=== PATIENT | male | born 1960 | race Caucasian/White ===

== ENCOUNTER 2016-12-17 17:55 | Emergency (ER) | payer OTHER ==
--- NOTE | 2016-12-17 18:24 | PDOC ---
History of Present Illness - General History Source: Patient <Yasmin Vincent Quincy - Last Filed: 12/17/16 18:25> - General History Source: Patient Exam Limitations: No Limitations - History of Present Illness Initial Comments: 12/17/16 18:26 The patient is a 55 year old male, with a significant past medical history of asthma, HTN, and kidney stones, who presents to the emergency department with left eye pain since yesterday The patient reports having burning sensations coming from his left eye. He reports this morning he had to manually open his eye because it was stuck together. He denies any recent fevers, chills, headache or dizziness. He denies any recent nausea, vomit, diarrhea or constipation. Allergies:NKA Past surgical history: Right TKR Social History: Nonsmoker. Denies EtOH use and drug use. <Maynor Vance - Last Filed: 12/17/16 18:27> - General Chief Complaint: Eye Problem Stated Complaint: LEFT EYE BURNING Time Seen by Provider: 12/17/16 17:57 Past History - Past Medical History Anemia: No Asthma: Yes Cancer: No Cardiac Disorders: No CVA: No COPD: No CHF: No Dementia: No Diabetes: No GI Disorders: No Disorders: Yes (KIDNEY STONES 05/23) HTN: Yes Hypercholesterolemia: No Kidney Stones: Yes Liver Disease: No Seizures: No Thyroid Disease: No - Surgical History Abdominal Surgery: No Appendectomy: No Cardiac Surgery: No Cholecystectomy: No Lung Surgery: No Neurologic Surgery: No Orthopedic Surgery: Yes (rt knee sx 1999) - Psycho/Social/Smoking Cessation Hx Anxiety: No Suicidal Ideation: No Smoking Status: No Smoking History: Never smoked Have you smoked in the past 12 months: No Number of Cigarettes Smoked Daily: 0 Hx Alcohol Use: No Drug/Substance Use Hx: No Substance Use Type: None Hx Substance Use Treatment: No <Yasmin Vincent - Last Filed: 12/17/16 18:25> <Maynor Vance - Last Filed: 12/17/16 18:27> - Past Medical History Allergies/Adverse Reactions: Allergies Allergy/AdvReac Type Severity Reaction Status Date / Time No Known Allergies Allergy Verified 08/14/15 00:00 Home Medications: Ambulatory Orders Albuterol Sulfate Inhaler - [Ventolin HFA Inhaler -] 2 inh PO Q6H PRN #1 inh 12/24 Albuterol Sulfate Inhaler - [Ventolin Hfa Inhaler -] 2 inh PO PRN 08/14/15 Azithromycin [Zithromax 250mg Tablets -] 250 mg PO UTDICT #6 tab 08/14/15 Tobramycin Sulf/Dexamethasone [Tobradex Ophthalmic Suspension -] 1 drop OP BID # 1 5ml 12/17/16 Review of Systems - Review of Systems Constitutional: No: Symptoms Reported HEENTM: Yes: Eye Pain Respiratory: No: Symptoms reported Cardiac (ROS): No: Symptoms Reported ABD/GI: No: Symptoms Reported : No: Symptoms Reported Musculoskeletal: No: Symptoms Reported Integumentary: No: Symptoms Reported Neurological: No: Symptoms reported Endocrine: No: Symptoms Reported <Maynor Vance - Last Filed: 12/17/16 18:27> *Physical Exam - Physical Exam General Appearance: Yes: Appropriately Dressed, Obese HEENT: positive: EOMI, ZAINAB, Normal ENT Inspection, Normal Voice, TMs Normal, Other (Left eye hyperemic conjunctiva at the perherpa of the eye globe.) Neck: positive: Supple Respiratory/Chest: positive: Lungs Clear, Normal Breath Sounds Cardiovascular: positive: Regular Rhythm, Regular Rate Gastrointestinal/Abdominal: positive: Normal Bowel Sounds, Flat, Soft Musculoskeletal: positive: Normal Inspection Extremity: positive: Normal Capillary Refill, Normal Inspection, Normal Range of Motion Integumentary: positive: Normal Color, Dry, Warm Neurologic: positive: leather splitter II-XII NML intact, Fully Oriented, Alert, Normal Mood/ Affect, Normal Response, Motor Strength 5/5 <Maynor Vance - Last Filed: 12/17/16 18:27> *DC/Admit/Observation/Transfer - Discharge Dispostion Admit: No <Yasmin Vincent - Last Filed: 12/17/16 18:25> - Attestations Scribe Attestion: 12/17/16 18:27 Documentation prepared by Maynor Vance, acting as medical technologist hematology for Yasmin Vincent MD. <Maynor Vance - Last Filed: 12/17/16 18:27> Diagnosis at time of Disposition: Conjunctivitis due to adenovirus, left eye - Prescriptions Prescriptions: Tobramycin Sulf/Dexamethasone [Tobradex Ophthalmic Suspension -] 1 drop OP BID # 1 5ml - Referrals Referrals: Kanwal Ramirez MD [Staff Physician] - - Patient Instructions Printed Discharge Instructions: How to Instill Eye Drops, DI for Red Eye Additional Instructions: Avoid dust, excessive light exposure. If no improvement by Thursday follow up with MD - Post Discharge Activity Work/School Note: Back to Work
[2016-12-17] MEDS ORDERED: TOBRAMYCIN 0.3% OPHTH SOLN 5 ML BOTTLE ONE (18:32)
[2016-12-17 18:50] VITALS: BP 131/79; PULSE 70; TEMP 98.2; BMI 39.9
[2016-12-18] MEDS ORDERED: TOBRA 0.3%/DEXAMETH 0.1% OPHTHALMIC SUSP 2.5 ML BTL OS SCH
== END 2016-12-17 18:51 | disposition home or self-care (01) ==
LOC: FER 17:55
DX: B30.1 Conjunctivitis due to adenovirus (principal); J45.909 Unspecified asthma, uncomplicated; Z87.442 Personal history of urinary calculi; I10 Essential (primary) hypertension
CPT/HCPCS: 99282-25

== ENCOUNTER 2017-01-21 16:13 | Emergency (ER) | payer OTHER ==
--- NOTE | 2017-01-21 16:42 | PDOC ---
History of Present Illness - History of Present Illness Initial Comments: 01/21/17 16:44 The patient is a 56 year old male, with a significant past medical history of hypertension and asthma, who presents to the emergency department with fever, chills, cough, and generalized muscle aches since last night. The patient states he was referred to the ED when the nurse at his job ([employer] ) recorded his oral temperature at 101.9F today. He states he feels very weak and sore. The patient also reports some mild nasal congestion/ He reports his cough is persistent and productive of white sputum. He reports taking porfirio with minimal relief of symptoms. 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 He denies recent travels. He denies neck pain. He reports receiving the flu vaccine this season. He denies chest pain, shortness of breath, headache and dizziness. He denies nausea, vomit, diarrhea and constipation. He denies dysuria, frequency, urgency and hematuria. Allergies: NKDA Past surgical history: none Social history: Denies toxic habits <Marlene Owens - Last Filed: 01/21/17 19:08> <Ziggy Wu - Last Filed: 01/22/17 07:58> - General Chief Complaint: Cold Symptoms Stated Complaint: NOT FEELING WELL FEVER 101.9 Time Seen by Provider: 01/21/17 16:23 Past History <Marlene Owens - Last Filed: 01/21/17 19:08> - Past Medical History Anemia: No Asthma: Yes Cancer: No Cardiac Disorders: No CVA: No COPD: No CHF: No Dementia: No Diabetes: No GI Disorders: No Disorders: Yes (KIDNEY STONES 05/23) HTN: Yes Hypercholesterolemia: No Kidney Stones: Yes Liver Disease: No Seizures: No Thyroid Disease: No - Surgical History Abdominal Surgery: No Appendectomy: No Cardiac Surgery: No Cholecystectomy: No Lung Surgery: No Neurologic Surgery: No Orthopedic Surgery: Yes (rt knee sx 1999) - Psycho/Social/Smoking Cessation Hx Anxiety: No Suicidal Ideation: No Smoking Status: No Smoking History: Never smoked Have you smoked in the past 12 months: No Number of Cigarettes Smoked Daily: 0 Hx Alcohol Use: No Drug/Substance Use Hx: No Substance Use Type: None Hx Substance Use Treatment: No <Ziggy Wu - Last Filed: 01/22/17 07:58> - Past Medical History Allergies/Adverse Reactions: Allergies Allergy/AdvReac Type Severity Reaction Status Date / Time No Known Allergies Allergy Verified 01/21/17 16:22 Home Medications: Ambulatory Orders Albuterol Sulfate Inhaler - [Ventolin Hfa Inhaler -] 2 inh PO PRN 08/14/15 Amox-Tr/K Cl [Augmentin - 875Mg Tablet] 1 tab PO BID #14 tablet 01/21/17 Review of Systems - Review of Systems Able to Perform ROS?: Yes Comments:: 01/21/17 16:45 CONSTITUTIONAL: (+) fever, chills, generalized weakness, Absent: diaphoresis, malaise, loss of appetite HEENT: Absent: rhinorrhea, nasal congestion, throat pain, throat swelling, difficulty swallowing, mouth swelling, ear pain, eye pain, visual Changes CARDIOVASCULAR: Absent: chest pain, syncope, palpitations, irregular heart rate, lightheadedness , peripheral edema RESPIRATORY: Absent: cough, shortness of breath, dyspnea with exertion, orthopnea, wheezing, stridor, hemoptysis GASTROINTESTINAL: Absent: abdominal pain, abdominal distension, nausea, vomiting, diarrhea, constipation, melena, hematochezia GENITOURINARY: Absent: dysuria, frequency, urgency, hesitancy, hematuria, flank pain, genital pain MUSCULOSKELETAL: (+) generalized myalgia,Absent: arthralgia, joint swelling SKIN: Absent: rash, itching, pallor HEMATOLOGIC/IMMUNOLOGIC: Absent: easy bleeding, easy bruising, lymphadenopathy, frequent infections ENDOCRINE: Absent: unexplained weight gain, unexplained weight loss, heat intolerance, cold intolerance NEUROLOGIC: Absent: headache, focal weakness or paresthesias, dizziness, unsteady gait, seizure, mental status changes, bladder or bowel incontinence PSYCHIATRIC: Absent: anxiety, depression, suicidal or homicidal ideation, hallucinations. <Marlene Owens - Last Filed: 01/21/17 19:08> *Physical Exam - Physical Exam Comments: 01/21/17 16:46 GENERAL: (+) Obese. Awake and alert. No acute distress. HEENT: Normocephalic, atraumatic. PERRLA, EOMI. No conjunctival pallor. Sclera are non- icteric. Moist mucous membranes. Oropharynx is clear. NECK: Supple. Full ROM. No JVD. Carotid pulses 2+ and symmetric, without bruits. No thyromegaly. No lymphadenopathy. CARDIOVASCULAR: (+) slightly tachycardic rate and regular rhythm. No murmurs, rubs, or gallops. Distal pulses are 2+ and symmetric. PULMONARY: (+) coughing on exam. No evidence of respiratory distress. Lungs clear to auscultation bilaterally. No wheezing, rales or rhonchi. ABDOMINAL: Soft. Non-tender. Non-distended. No rebound or guarding. No organomegaly. Normoactive bowel sounds. MUSCULOSKELETAL Normal range of motion at all joints. No bony deformities or tenderness. No CVA tenderness. EXTREMITIES: No cyanosis. No clubbing. No edema. No calf tenderness. SKIN: Warm and dry. Normal capillary refill. No rashes. No jaundice. NEUROLOGICAL: Alert, awake, appropriate. Cranial nerves 2-12 intact. Normoreflexic in the upper and lower extremities. Normal speech. Toes are down-going bilaterally. Gait is normal without ataxia. PSYCHIATRIC: Cooperative. Good eye contact. Appropriate mood and affect. <Marlene Owens - Last Filed: 01/21/17 19:08> ED Treatment Course - LABORATORY CBC & Chemistry Diagram: 01/21/17 17:29 01/21/17 17:29 - RADIOLOGY Radiograph Interpretation: 01/21/17 19:08 CXR was read by Dr. Morales Impression: No definite interval change in comparison to previous study 2012. <Marlene Owens - Last Filed: 01/21/17 19:08> - LABORATORY CBC & Chemistry Diagram: 01/21/17 17:29 01/21/17 17:29 <Ziggy Wu - Last Filed: 01/22/17 07:58> Medical Decision Making - Medical Decision Making 01/21/17 18:57 Repeat vital signs show oxygen saturation 97 on room air, blood pressure 123/63 , heart rate 96 and regular, respirations 20 and unlabored. Repeat examination reveals that the chest is clear, there is no tachypnea or dyspnea Patient remains stable. Chest x-ray as read by radiologist no congestion or infiltrate. Lactic acid normal. Signed out at [address] Pedraza pending further observation and disposition. <Ziggy Wu - Last Filed: 01/22/17 07:58> *DC/Admit/Observation/Transfer - Attestations Scribe Attestion: 01/21/17 16:48 Documentation prepared by Marlene Owens, acting as medical claims processor for Ziggy Isbell MD <Marlene Owens - Last Filed: 01/21/17 19:08> <Ziggy Wu - Last Filed: 01/22/17 07:58> Diagnosis at time of Disposition: Asthmatic bronchitis - Discharge Dispostion Disposition: HOME Condition at time of disposition: Stable - Prescriptions Prescriptions: Amox-Tr/K Cl [Augmentin - 875Mg Tablet] 1 tab PO BID #14 tablet - Patient Instructions Printed Discharge Instructions: DI for Acute Bronchitis Additional Instructions: augmentin 875/125 twice a day(take with food)for 1 week drink plenty of fluids; rest continue albuterol as needed return to ER if you have shortness of breath or persistent, high fever return to work on Thursday, January 26 as discussed followup with general doctor within 10 days as planned - Post Discharge Activity Work/School Note: Back to Work
[2017-01-21 16:54] VITALS: BMI 43.9
[2017-01-21 17:39] LABS: BASOPHIL 0.8 % (0-2.0); MCH 27.1 pg (25.7-33.7); MCHC 32.7 g/dl (32.0-35.9); MEAN PLT VOLUME 8.9 fl (7.5-11.1); NEUTROPHILS 68.4 % (42.8-82.8); PLATELET COUNT 246 K/MM3 (134-434); RDW 13.3 % (11.9-15.9); WHITE BLOOD COUNT 7.1 K/mm3 (4.0-10.0)
[2017-01-21 17:46] LABS: INR 1.06 (0.82-1.09); PROTHROMBIN TIME (PATIENT) 11.8 SEC (10.2-13.0)
[2017-01-21 17:52] LABS: ALBUMIN 4.4 g/dl (3.5-5.0); ALK PHOS 53 U/L (32-92); ANION GAP 11 (8-16); BILIRUBIN,TOTAL 0.7 mg/dl (0.2-1.0); CALCIUM 9.5 mg/dl (8.4-10.2); CO2 25 mmol/L (22-28); CPK(DFH) 164 IU/L (38-174); CREATININE 1.1 mg/dl (0.6-1.3); GLUCOSE,RANDOM 139 mg/dl (74-106); SGOT/AST 26 U/L (10-42); SGPT/ALT 35 U/L (10-40); TOT PROT 7.7 g/dl (6.4-8.3)
[2017-01-21 17:59] LABS: PH,URINE 5.5 (4.5-8); URINE APPEARANCE Clear; URINE BILIRUBIN Negative (NEGATIVE); URINE BLOOD Trace-lysed (NEGATIVE); URINE GLUCOSE (UA) Negative (NEGATIVE); URINE KETONE Negative (NEGATIVE); URINE LEUK ESTERASE Negative (NEGATIVE); URINE NITRITE Negative (NEGATIVE); URINE UROBILINOGEN 0.2 E.U/dl (0.2-1.0)
[2017-01-21 18:00] LABS: URINE COLOR YELLOW; URINE PROTEIN 1+ (NEGATIVE)
[2017-01-21 18:07] VITALS: BP 162/87; PULSE 102; TEMP 101.2
[2017-01-21] MEDS ORDERED: SODIUM CHLORIDE 1,000 ML IV STA (18:08)
[2017-01-21 18:11] LABS: TROPONIN I (DFP) < 0.03 ng/ml (0.03-0.50)
[2017-01-21] MEDS ORDERED: ACETAMINOPHEN 325 MG TABLET (FP) ONE (18:12)
[2017-01-21 18:14] LABS: CK MB 0.8 ng/ml (0.3-4.0)
[2017-01-21] MEDS ORDERED: ACETAMINOPHEN 325 MG TABLET (FP) PO ONE (18:16)
[2017-01-21 18:22] LABS: URINE BACTERIA FEW /hpf (NEGATIVE); URINE WBC 0-2 (3-5)
--- NOTE | 2017-01-21 19:13 | PDOC ---
[id number] 162/87 95 01/21/17 18:03 01/21/17 18:03 01/21/17 18:03 01/21/17 18:03 01/21/17 16:19 ED Treatment Course - LABORATORY CBC & Chemistry Diagram: 01/21/17 17:29 01/21/17 17:29 - ADDITIONAL ORDERS Additional order review: Laboratory Results 01/21/17 01/21/17 01/21/17 17:52 17:29 17:29 INR Sodium Potassium Chloride Carbon Dioxide Anion Gap BUN Creatinine Creat Clearance w eGFR Random Glucose Lactic Acid 1.228 Calcium Total Bilirubin AST ALT Alkaline Phosphatase Creatine Kinase 164 CK-MB (CK-2) 0.8 CK-MB (CK-2) Rel Index 0.5 Troponin I < 0.03 L Total Protein Albumin Urine Color Yellow Urine Appearance Clear Urine pH 5.5 Ur Specific [place] 1.015 Urine Protein 1+ H D Urine Glucose (UA) Negative Urine Ketones Negative Urine Blood Trace-lysed Urine Nitrite Negative Urine Bilirubin Negative Urine Urobilinogen 0.2 e.u/dl Ur Leukocyte Esterase Negative Urine RBC 2-3 Urine WBC 0-2 Urine Bacteria Few 01/21/17 01/21/17 17:29 17:29 INR 1.06 Sodium 136 Potassium 3.9 Chloride 100 Carbon Dioxide 25 Anion Gap 11 BUN 17 D Creatinine 1.1 Creat Clearance w eGFR > 60 Random Glucose 139 H D Lactic Acid Calcium 9.5 Total Bilirubin 0.7 D AST 26 ALT 35 Alkaline Phosphatase 53 Creatine Kinase CK-MB (CK-2) Cancelled CK-MB (CK-2) Rel Index Troponin I Total Protein 7.7 Albumin 4.4 Urine Color Urine Appearance Urine pH Ur Specific [place] Urine Protein Urine Glucose (UA) Urine Ketones Urine Blood Urine Nitrite Urine Bilirubin Urine Urobilinogen Ur Leukocyte Esterase Urine RBC Urine WBC Urine Bacteria 01/21/17 17:29 RBC 5.02 MCV 83.0 MCHC 32.7 RDW 13.3 MPV 8.9 D Neutrophils % 68.4 Lymphocytes % 14.7 D Monocytes % 15.1 H Eosinophils % 1.0 Basophils % 0.8 - Medications Given in the ED: ED Medications Discontinued Medications Generic Name Dose Route Start Last Admin Trade Name Freq PRN Reason Stop Dose Admin Acetaminophen 975 mg 01/21/17 18:16 01/21/17 18:18 Tylenol - PO 01/21/17 18:17 975 mg ONCE ONE Administration Sodium Chloride 1,000 mls @ 1,000 mls/hr 01/21/17 18:08 01/21/17 18:10 Normal Saline - IV 01/21/17 19:07 1,000 mls/hr ASDIR STA Administration Progress Note - Progress Note Progress Note: Care of this patient received from Dr. Quarles. Diagnostic workup of chest x-ray and laboratory evaluation performed. Interpretation of chest x-ray shows no evidence of acute infiltrate/effusion. Laboratory of workup is essentially normal. Clinical presentation most consistent with acute bronchitis/exacerbation of asthma. Patient will be treated with antibiotics: patient states that azithromycin is usually ineffective for him and amoxicillin generally works well. Augmentin 875/125, 1 tab given to patient with prescription for 7 day course. Patient should rest , drink plenty of fluids and use albuterol as needed He should not work for the next 2 days, returning to work on January 26 *DC/Admit/Observation/Transfer Diagnosis at time of Disposition: Asthmatic bronchitis Qualifiers: Asthma severity: moderate persistent Asthma complication type: with acute exacerbation Qualified Code(s): J45.41 - Moderate persistent asthma with (acute ) exacerbation - Discharge Dispostion Disposition: HOME Condition at time of disposition: Stable - Prescriptions Prescriptions: Amox-Tr/K Cl [Augmentin - 875Mg Tablet] 1 tab PO BID #14 tablet - Patient Instructions Printed Discharge Instructions: DI for Acute Bronchitis Additional Instructions: augmentin 875/125 twice a day(take with food)for 1 week drink plenty of fluids; rest continue albuterol as needed return to ER if you have shortness of breath or persistent, high fever return to work on January 26 as discussed followup with general doctor within 10 days as planned - Post Discharge Activity Work/School Note: Back to Work
[2017-01-21] MEDS ORDERED: AMOX TR/POT CLAV 875MG/125MG TABLETS (FP) PO ONE (19:57)
[2017-01-21] MEDS ORDERED: AMOX TR/POT CLAV 875MG/125MG TABLETS (FP) ONE (20:02)
--- NOTE | 2017-01-22 12:45 | EKG ---
Test Reason : Blood Pressure : / mmHG Vent. Rate : 098 BPM Atrial Rate : 098 BPM P-R Int : 202 ms QRS Dur : 102 ms QT Int : 364 ms P-R-T Axes : 039 001 -13 degrees QTc Int : 464 ms SINUS RHYTHM WITH 1ST DEGREE A-V BLOCK INFERIOR INFARCT , AGE UNDETERMINED ABNORMAL ECG WHEN COMPARED WITH ECG OF 19-MAY-2012 05:40, 1st degree AV block is now noted Confirmed by SHANA THOMASON MD ([id number]) on 01/22/2017 12:44:57 PM Referred By: MD DAILY Confirmed By:SHANA THOMASON MD
== END 2017-01-21 20:06 | disposition home or self-care (01) ==
LOC: FER 16:13
PROC: 3E0337Z Introduction of Electrolytic and Water Balance Substance into Peripheral Vein, Percutaneous Approach (ICD-10-PCS; principal; 2017-01-21)
DX: J45.909 Unspecified asthma, uncomplicated (principal); I10 Essential (primary) hypertension; Z87.442 Personal history of urinary calculi
CPT/HCPCS: 36415; 71020-TC; 80053; 81003; 81015; 82550; 82553; 83605; 84484; 85025; 85610; 87040; 87086; 87804; 93005; 99283-25

== ENCOUNTER 2017-11-20 17:50 | Emergency (ER) | payer OTHER ==
[2017-11-20 18:02] VITALS: BP 178/97; PULSE 80; TEMP 98.4; BMI 44.4
--- NOTE | 2017-11-20 18:40 | PDOC ---
History of Present Illness - History of Present Illness Initial Comments: 11/20/17 18:40 The patient is a 56 year old male, with a significant past medical history of hypertension and asthma, who presents to the emergency department for cold symptoms. The patient states that he began feeling unwell since Thursday but noted that his symptoms worsened yesterday. He reports experiencing cough at night, body aches, nausea, and diarrhea. Patient states that he works for [employer] and believes he may have caught something in the enclosed environment of the facility he works at. He denies fever, sore throat, or runny nose. He denies chest pain, shortness of breath, headache and dizziness. He denies nausea, vomit, diarrhea and constipation. He denies dysuria, frequency, urgency and hematuria. Allergies: NKDA Past surgical history: sleep apnea surgery Social history: Denies toxic habits PCP: Beth Parham Medications: Amlodipine 10 mg PO daily <Alka Martinez - Last Filed: 11/20/17 18:40> <Ziggy Wu - Last Filed: 11/21/17 07:39> - General Chief Complaint: Cold Symptoms Stated Complaint: FLU LIKE ILLNESS Time Seen by Provider: 11/20/17 18:26 Past History <Alka Martinez - Last Filed: 11/20/17 18:40> - Past Medical History Anemia: No Asthma: Yes Cancer: No Cardiac Disorders: No CVA: No COPD: No CHF: No DVT: No Dementia: No Diabetes: No Dialysis: No GI Disorders: No Disorders: Yes (KIDNEY STONES 05/23) HTN: Yes Hypercholesterolemia: No Kidney Stones: Yes Liver Disease: No Psychiatric Problems: No Seizures: No Thyroid Disease: No Lung CA: No - Surgical History Abdominal Surgery: No Appendectomy: No Cardiac Surgery: No Cholecystectomy: No Gastric Stapling: No GI Surgery: No Lung Surgery: No Neurologic Surgery: No Orthopedic Surgery: Yes (rt knee sx 1999) - Immunization History Immunization Up to Date: Yes - Suicide/Smoking/Psychosocial Hx Smoking Status: No Smoking History: Never smoked Have you smoked in the past 12 months: No Number of Cigarettes Smoked Daily: 0 Hx Alcohol Use: Yes (RARE) Drug/Substance Use Hx: No Substance Use Type: None Hx Substance Use Treatment: No <Ziggy Wu - Last Filed: 11/21/17 07:39> - Past Medical History Allergies/Adverse Reactions: Allergies Allergy/AdvReac Type Severity Reaction Status Date / Time No Known Allergies Allergy Verified 01/21/17 16:22 Home Medications: Ambulatory Orders Amlodipine Besylate [Norvasc -] 10 mg PO DAILY 11/20/17 Guaifenesin AC [Robitussin-AC] 1 - 2 tsp PO HS PRN #60 ml MDD 2 11/20/17 Oseltamivir Phosphate [Tamiflu] 75 mg PO BID #10 capsule 11/20/17 Review of Systems - Review of Systems Comments:: 11/20/17 18:40 CONSTITUTIONAL: Present: chills Absent: fever, diaphoresis, loss of appetite HEENT: Absent: rhinorrhea, nasal congestion, throat pain, throat swelling, difficulty swallowing, mouth swelling, ear pain, eye pain, visual Changes CARDIOVASCULAR: Absent: chest pain, syncope, palpitations, irregular heart rate, lightheadedness , peripheral edema RESPIRATORY: Present: cough Absent: shortness of breath, dyspnea with exertion, orthopnea, wheezing, stridor , hemoptysis GASTROINTESTINAL: Present: nausea, abdominal pain, diarrhea. Absent: abdominal distension, vomiting, constipation, melena, hematochezia GENITOURINARY: Absent: dysuria, frequency, urgency, hesitancy, hematuria, flank pain, genital pain MUSCULOSKELETAL: Present: myalgia Absent: arthralgia, joint swelling SKIN: Absent: rash, itching, pallor NEUROLOGICAL: Absent: headache, focal weakness or paresthesias, dizziness, unsteady gait, seizure, mental status changes, bladder or bowel incontinence <Alka Martinez - Last Filed: 11/20/17 18:40> *Physical Exam - Vital Signs Last Vital Signs Temp Pulse Resp BP Pulse Ox 98.4 F 80 18 178/97 98 11/20/17 17:52 11/20/17 17:52 11/20/17 17:52 11/20/17 17:52 11/20/17 17:52 - Physical Exam Comments: 11/20/17 18:44 GENERAL: Well-appearing, well-nourished. Moderately obese. No apparent distress. Afebrile. HEENT: Normocephalic, atraumatic. PERRL, EOM intact. Neck supples without nodes. CARDIOVASCULAR: Blood pressure 178/97 - Did not take his anti-hypertension medications today. Normal S1, S2. Regular rate and rhythm. PULMONARY: Respiratory rate - 18 (unlabored). Oxygen saturation 98%. Clear to auscultation bilaterally. ABDOMEN: Soft, non-distended, non-tender. EXTREMITIES: Normal ROM in all four extremities. No gross deformities. SKIN: Warm, dry, clear. Adequate hydration. No rash NEUROLOGICAL: No focal neurological deficits. <Alka Martinez - Last Filed: 11/20/17 18:40> - Vital Signs Last Vital Signs Temp Pulse Resp BP Pulse Ox 98.4 F 80 18 178/97 98 11/20/17 17:52 11/20/17 17:52 11/20/17 17:52 11/20/17 17:52 11/20/17 17:52 <Ziggy Wu - Last Filed: 11/21/17 07:39> Medical Decision Making - Medical Decision Making 11/21/17 07:38 Typical flu symptoms. No respiratory distress. Treatment and follow-up <Ziggy Wu - Last Filed: 11/21/17 07:39> *DC/Admit/Observation/Transfer <Alka Martinez - Last Filed: 11/20/17 18:40> - Discharge Dispostion Admit: No <Ziggy Wu - Last Filed: 11/21/17 07:39> Diagnosis at time of Disposition: Viral syndrome - Discharge Dispostion Disposition: HOME Condition at time of disposition: Stable - Prescriptions Prescriptions: Guaifenesin AC [Robitussin-AC] 1 - 2 tsp PO HS PRN #60 ml MDD 2 PRN Reason: Cough Oseltamivir Phosphate [Tamiflu] 75 mg PO BID #10 capsule - Referrals Referrals: Beth Parham MD [Primary Care Provider] - 3 days - Patient Instructions Printed Discharge Instructions: DI for Viral Upper Respiratory Infection -- Adult - Post Discharge Activity Forms/Work/School Notes: Back to Work
== END 2017-11-20 18:46 | disposition home or self-care (01) ==
LOC: FER 17:50
DX: B34.9 Viral infection, unspecified (principal)
CPT/HCPCS: 99281-25

== ENCOUNTER 2018-02-07 17:45 | Emergency (ER) | payer OTHER | END 2018-02-07 18:24 | disposition home or self-care (01) | LOC: FER 17:45 | CPT/HCPCS: 99283-25 ==

== ENCOUNTER 2019-05-09 18:12 | Emergency (ER) | payer OTHER ==
--- NOTE | 2019-05-09 18:15 | PDOC ---
History of Present Illness - General Chief Complaint: Injury Stated Complaint: RT KNEE INJURY Time Seen by Provider: 05/09/19 18:14 Past History - Past Medical History Allergies/Adverse Reactions: Allergies Allergy/AdvReac Type Severity Reaction Status Date / Time No Known Allergies Allergy Verified 05/09/19 18:13 Home Medications: Ambulatory Orders Nifedipine [Nifedipine ER] 60 mg PO DAILY 05/09/19 Anemia: No Asthma: Yes Cancer: No Cardiac Disorders: No CVA: No COPD: No CHF: No DVT: No Dementia: No Diabetes: No Dialysis: No GI Disorders: No Disorders: Yes (KIDNEY STONES 05/23) HTN: Yes Hypercholesterolemia: No Kidney Stones: Yes Liver Disease: No Psychiatric Problems: No Seizures: No Thyroid Disease: No Lung CA: No - Surgical History Abdominal Surgery: No Appendectomy: No Cardiac Surgery: No Cholecystectomy: No Gastric Stapling: No GI Surgery: No Lung Surgery: No Neurologic Surgery: No Orthopedic Surgery: Yes (rt knee sx 1999) - Immunization History Immunization Up to Date: Yes - Suicide/Smoking/Psychosocial Hx Smoking Status: No Smoking History: Never smoked Have you smoked in the past 12 months: No Number of Cigarettes Smoked Daily: 0 Hx Alcohol Use: Yes (RARE) Drug/Substance Use Hx: No Substance Use Type: None Hx Substance Use Treatment: No *DC/Admit/Observation/Transfer Diagnosis at time of Disposition: Right knee injury - Discharge Dispostion Disposition: HOME Condition at time of disposition: Improved Decision to Admit order: No - Referrals Referrals: Morro Macedo MD [Staff Physician] - - Patient Instructions Additional Instructions: You have been seen in the Emergency Department for your knee injury. Your exam and X-ray show no signs concerning for a fracture or dislocation. Your pain is most likely due to a strain or sprain. If you experience pain, you can take Tylenol or Ibuprofen as directed on the medication bottle, but do not exceed 3g of Ibuprofen or 4g of Tylenol a day. We have given you a referral for an Orthopedic Surgeon, Dr. Macedo. Call the office tomorrow and make a follow-up appointment for this week. Return to the ED immediately if you experience pain not controlled by over the counter medications, fever, dizziness, or any other new or worsening symptom. - Post Discharge Activity Forms/Work/School Notes: Back to Work
[2019-05-09] MEDS ORDERED: ACETAMINOPHEN 500 MG TABLET (FP) PO ONE (18:35)
[2019-05-09 18:52] VITALS: BP 149/93; PULSE 68; TEMP 98.4; BMI 38.9
[2019-05-09] MEDS ORDERED: ACETAMINOPHEN 500 MG TABLET (FP) ONE (18:52)
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
== END 2019-05-09 19:54 | disposition home or self-care (01) ==
LOC: FER 18:12
DX: S89.91XA Unspecified injury of right lower leg, initial encounter (principal); X58.XXXA Exposure to other specified factors, initial encounter; Y93.9 Activity, unspecified; Y92.9 Unspecified place or not applicable; I10 Essential (primary) hypertension; Z87.442 Personal history of urinary calculi; J45.909 Unspecified asthma, uncomplicated
CPT/HCPCS: 73562-TC-RT-FY; 99282-25

== ENCOUNTER 2019-08-17 10:25 | Day surgery (SDC) | payer OTHER ==
[2019-08-16 11:59] VITALS: BMI 39.3
--- NOTE | 2019-08-17 12:04 | HP ---
Satellite H - Chief Complaint Chief Complaint: right knee pain - Past Medical History Allergies/Adverse Reactions: Allergies Allergy/AdvReac Type Severity Reaction Status Date / Time No Known Allergies Allergy Verified 08/17/19 11:17 - Current Medications Current Medications: Home Medications Medication Instructions Recorded Nifedipine [Nifedipine ER] 60 mg PO DAILY 05/09/19 Candesartan Cilexetil [Atacand -] 8 mg PO DAILY 08/16/19 Fluticasone Propionate [Flovent 44 mcg IH PRN 08/16/19 Hfa] Hydrocodone/Acetaminophen 1 each PO Q6H #20 tablet MDD 4 08/17/19 [Hydrocodone-Acetamin 5-325 mg] Satellite Physical Exam - Physical Examination Vital Signs: Vital Signs Period Temp Pulse Resp BP Sys/Zepeda Pulse Ox Last 24 Hr 98.7 F 83 18 139/69 98 General Appearance: Well Nourished, Well Developed, Alert & Oriented x3 ENT: Clear Lung: Normal air movement Heart: Regular rate & rhythm Extremities: Other (right knee- + swelling, + ttp ,decr rom, + mcmurrays, nvi, MRi + mt) Neurological: Intact, Alert, Oriented Satellite Impression/Plan - Impression/Plan Impression: right knee internal derangement Operative Procedure: right knee arthroscopy Date to be Performed: 08/17/19
[2019-08-17] MEDS ORDERED: BUPIVACAINE HCL/PF 0.5% (5 MG/ML) 30 ML VIAL IJ ONE ×2 (13:25→14:43)
[2019-08-17] MEDS ORDERED: MIDAZOLAM HCL 2 MG/2 ML SINGLE DOSE VIAL ONE (13:44)
[2019-08-17] MEDS ORDERED: PROPOFOL 20 ML ONE ×2 (13:44)
[2019-08-17] MEDS ORDERED: DEXAMETHASONE SOD PHOSPHATE 4 MG/1 ML VIAL ONE (13:44)
[2019-08-17] MEDS ORDERED: SODIUM CHLORIDE 0.9% P/F 10 ML VIAL IJ ONE (13:46)
[2019-08-17] MEDS ORDERED: ceFAZolin SODIUM 1 GM VIAL ONE (13:46)
[2019-08-17] MEDS ORDERED: ONDANSETRON 4 MG/2 ML VIAL IVPUSH PRN (13:57)
[2019-08-17] MEDS ORDERED: oxyCODONE HCL 5 MG TABLET PO PRN ×2 (13:57)
[2019-08-17] MEDS ORDERED: LACTATED RINGERS SOLUTION 1,000 ML IV SCH (14:00)
[2019-08-17] MEDS ORDERED: ceFAZolin SODIUM 1 GM VIAL IVPB ONE (14:15)
[2019-08-17] MEDS ORDERED: KETOROLAC TROMETHAMINE 30 MG/1 ML VIAL ONE (14:16)
--- NOTE | 2019-08-17 14:59 | OP ---
Operative Note - Note: Operative Date: 08/17/19 Pre-Operative Diagnosis: right knee pain, medial meniscus tear, OA Operation: right knee arthroscopy, partial medial meniscectomy, debridement chondoplasty Findings: OA, severe in medial and PF compartments Post-Operative Diagnosis: Same as Pre-op Surgeon: Morro Macedo Anesthesiologist/CANVAS CUTTER: Freedom Conley Anesthesia: General, Local Specimens Removed: shavings Estimated Blood Loss (mls): 0 Drains, Volume Out (mls): 0 Blood Volume Replaced (mls): 0 Fluid Volume Replaced (mls): 700 Operative Report Dictated: Yes
[2019-08-17 16:39] VITALS: PULSE 74; TEMP 97.5
[2019-08-17 17:17] VITALS: BP 146/72
--- NOTE | 2019-08-18 12:09 | OP ---
DATE OF OPERATION: 08/17/2019 PREOPERATIVE DIAGNOSIS: Right knee pain, medial meniscus tear, and osteoarthritis. POSTOPERATIVE DIAGNOSIS: Right knee pain, medial meniscus tear, and osteoarthritis. PROCEDURE: Right knee arthroscopy, partial medial meniscectomy, and debridement chondroplasty. SURGEON: Morro Macedo MD SENIOR EXECUTIVE ASSISTANT: None. ANESTHESIA: Freedom Conley MD, LMA anesthesia with local injection of 20 mL 0.5% Marcaine. DRAINS: None. COMPLICATIONS: None. SPECIMEN: Arthroscopic shavings. BLOOD LOSS: None. BLOOD GIVEN: None. FLUID REPLACEMENT: 500 mL Plasma-Lyte. INDICATIONS: This patient is a 58-year-old male with a preoperative diagnosis of right knee pain, medial meniscus tear, and osteoarthritis. After understanding the potential risks, complications, alternatives, and benefits to surgery versus nonsurgical treatment, the patient elected to undergo this procedure. DESCRIPTION OF PROCEDURE: The patient was brought to the operating room. Peripheral IV placed and IV sedation given, 2 g of IV Ancef were given. LMA anesthesia was induced. Ample Webril was placed around the right thigh. The right lower extremity was prepped and draped in sterile fashion with the C-clamp leg chandra elevated, exsanguinated with Esmarch bandage and tourniquet inflated to 275 mmHg. I established a superior and medial outflow portal. A lateral port was established. Arthroscope was introduced into the joint. Under direct visualization using a spinal needle, a medial portal was established. Diagnostic arthroscopy was performed. In the medial compartment, the patient was seen to have a complex tear of the body posterior horn of the medial meniscus. This was debrided with the curved shaver. Patient had significant areas of grade 2/grade 3 osteoarthritis of the medial femoral condyle and wide areas of grade 3/grade 4 of the medial tibial plateau. There was an area about the size of a quarter with complete exposed subchondral bone. A partial medial meniscectomy and debridement chondroplasty was performed of the medial compartment. Additional synovectomy was done. Next, our attention turned to the intercondylar notch. The patient had a significantly frayed and partially torn anterior cruciate ligament. This was debrided with the curved shaver as well. Photographs were taken before and after. Patient had a large ligamentum mucosum, which was removed as well. Next, our attention was turned to the lateral compartment where the patient had a tremendous amount of synovitis removed. The lateral compartment, however, looked quite good. The articular cartilage in the lateral meniscus all looked clean. A photograph was taken. 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 Patient only had grade 2 changes on the undersurface of the patella. The femoral trochlea was debrided with a curved shaver. The area was copiously irrigated and washed out. All excess saline and debris were removed. The arthroscopy portal was closed with 3-0 nylon suture, 20 mL 0.5% Marcaine introduced into the joint. The area was then washed and dried, covered with a Xeroform gauze, 4 x 4 gauze, Webril, and 2 Blaine bandages. Tourniquet was taken down after a total tourniquet time of about 18 minutes. There were no complications during the case. The patient tolerated the procedure quite well and was brought to the ambulatory recovery room in stable condition. Hermilo [id number]
--- NOTE | 2019-08-19 18:28 | PATH ---
Surgical Pathology Report Patient Name: AGUSTIN GA Med. Rec. #: [id number] /Age/Gender: 1960 (Age: 58) / M Account: [id number] Location: [facility] SURGICAL Taken: 08/17/2019 Received: 08/18/2019 Reported: 08/19/2019 Physicians: Morro Macedo M.D. Specimen(s) Received RIGHT KNEE SHAVINGS Clinical History Right meniscus tear Final Diagnosis RIGHT KNEE SHAVINGS: FRAGMENTS OF CARTILAGE AND FIBROSYNOVIAL TISSUE WITH FOCAL FIBROSIS. Electronically Signed Yvonne Pollard M.D. Gross Description Received in formalin, labeled "right knee shavings," is a 6.0 x 5.5 x 0.4 cm. aggregate of hernandez-yellow soft tissue fragments. A guest experience representative portion is submitted in one cassette. /08/18/2019 saudi08/18/2019
== END 2019-08-17 17:44 | disposition home or self-care (01) ==
LOC: JASU-SURG 10:25
PROVIDERS: ATTEND Orthopaedic Surgery
PROC: 0SQC4ZZ Repair Right Knee Joint, Percutaneous Endoscopic Approach (ICD-10-PCS; principal; 2019-08-17 12:30)
DX: S83.231A Complex tear of medial meniscus, current injury, right knee, initial encounter (principal); X58.XXXA Exposure to other specified factors, initial encounter; Y93.9 Activity, unspecified; Y92.9 Unspecified place or not applicable; Y99.9 Unspecified external cause status; M17.11 Unilateral primary osteoarthritis, right knee
CPT/HCPCS: 88304-TC; 94760

== ENCOUNTER 2021-03-21 11:27 | Emergency (ER) | payer OTHER, BC ==
[2021-03-21 11:43] VITALS: BP 155/86; PULSE 86; TEMP 98.6; BMI 41.9
[2021-03-21] MEDS ORDERED: AMOX TR/POT CLAV 875MG/125MG TABLETS (FP) PO ONE (12:01)
[2021-03-21] MEDS ORDERED: AMOX TR/POT CLAV 875MG/125MG TABLETS (FP) ONE (12:02)
== END 2021-03-21 12:17 | disposition home or self-care (01) ==
LOC: FER 11:27
DX: J45.20 Mild intermittent asthma, uncomplicated (principal)
CPT/HCPCS: 71046-TC-FY; 99283-25

== ENCOUNTER 2021-08-27 09:00 | Inpatient (IN) | payer BC, OTHER ==
[2021-08-20 14:45] VITALS: BMI 41.9
[~2021-08-27 09:00] MED LIST: VANCOMYCIN 1,000 MG VIAL (RESTRICTED TO ID ONLY) IVPB ONE
[2021-08-27] MEDS: CELECOXIB 200 MG CAPSULE PO ONE ×2 (10:20→16:21)
[2021-08-27] MEDS ORDERED: BUPIVACAINE LIPOSOME/PF (EXPAREL) 266 MG/20 ML VIAL ONE (10:39)
[2021-08-27] MEDS ORDERED: MIDAZOLAM HCL 2 MG/2 ML SINGLE DOSE VIAL ONE ×3 (10:39→12:06)
[2021-08-27] MEDS ORDERED: BUPIVACAINE HCL/PF 0.5% (5MG/ML) 10 ML VIAL ONE (10:39)
[2021-08-27] MEDS ORDERED: SODIUM CHLORIDE 0.9% P/F 10 ML VIAL IJ ONE (10:39)
[2021-08-27] MEDS ORDERED: TRANEXAMIC ACID 1000 MG/10 ML VIAL IVPUSH ONE (11:30)
[2021-08-27] MEDS ORDERED: CEFAZOLIN 2 GM in DEXTROSE 5%-WATER - 50 ML IVPB ONE (11:30)
[2021-08-27] MEDS ORDERED: VANCOMYCIN 1,000 MG VIAL (RESTRICTED TO ID ONLY) ONE (11:39)
[2021-08-27] MEDS ORDERED: ceFAZolin SODIUM 1 GM VIAL ONE ×4 (11:39→23:33)
[2021-08-27] MEDS ORDERED: ONDANSETRON 4 MG/2 ML VIAL ONE (12:07)
[2021-08-27] MEDS ORDERED: DEXAMETHASONE SOD PHOSPHATE 4 MG/1 ML VIAL ONE (12:07)
[2021-08-27] MEDS ORDERED: TRANEXAMIC ACID 1000 MG/10 ML VIAL ONE (12:07)
[2021-08-27] MEDS ORDERED: ePHEDrine SULFATE 50 MG/1 ML AMPULE ONE (12:10)
[2021-08-27] MEDS ORDERED: VANCOMYCIN 1,000 MG VIAL (RESTRICTED TO ID ONLY) IVPB ONE (13:40)
[2021-08-27] MEDS ORDERED: MAG HYDROX/AL HYDROX/SIMETH 30 ML UNIT-DOSE CUP PO PRN (14:02)
[2021-08-27] MEDS ORDERED: MAGNESIUM HYDROX 2400MG/30ML ORAL SUSPENSION 30 ML CUP PO PRN (14:02)
[2021-08-27] MEDS ORDERED: ONDANSETRON 4 MG/2 ML VIAL IVPUSH PRN ×2 (14:02→14:38)
[2021-08-27] MEDS ORDERED: LACTATED RINGERS SOLUTION 1,000 ML IV SCH (14:15)
[2021-08-27] MEDS ORDERED: ACETAMINOPHEN 1000 MG/100 ML VIAL IVPB ONE ×2 (14:20→14:25)
[2021-08-27] MEDS ORDERED: ACETAMINOPHEN INJECTION 100 ML IVPB ONE (14:22)
[2021-08-27] MEDS ORDERED: oxyCODONE HCL 5 MG TABLET PO PRN (14:38)
[2021-08-27] MEDS: ACETAMINOPHEN 500 MG TABLET (FP) PO SCH ×2 (16:24→21:17)
[2021-08-27] MEDS: oxyCODONE HCL 5 MG TABLET PO PRN ×2 (16:35→21:14)
[2021-08-27] MEDS ORDERED: DEXTROSE 5%-WATER - 50 ML IVPB ONE ×2 (20:35→23:33)
[2021-08-27] MEDS: oxyCODONE HCL 10 MG SUSTAINED ACTING TABLET PO SCH (21:14)
[2021-08-27] MEDS: SENNOSIDES/DOCUSATE COMBO (SENNA PLUS) TABLET (UD) PO SCH (21:15)
[2021-08-27] MEDS: CEFAZOLIN 2 GM in DEXTROSE 5%-WATER - 50 ML IVPB SCH (21:17)
[2021-08-28] MEDS ORDERED: ceFAZolin SODIUM 1 GM VIAL ONE ×2 (02:15→06:08)
[2021-08-28] MEDS ORDERED: DEXTROSE 5%-WATER - 50 ML IVPB ONE ×2 (02:15→06:08)
[2021-08-28] MEDS: oxyCODONE HCL 5 MG TABLET PO PRN ×4 (02:21→21:30)
[2021-08-28] MEDS: ACETAMINOPHEN 500 MG TABLET (FP) PO SCH ×4 (02:22→21:30)
[2021-08-28] MEDS: CEFAZOLIN 2 GM in DEXTROSE 5%-WATER - 50 ML IVPB SCH (06:18)
[2021-08-28 08:13] LABS: HEMATOCRIT 36.6 % (35.4-49); HEMOGLOBIN 11.9 GM/dl (11.7-16.9); MCH 28.6 pg (25.7-33.7); MCHC 32.5 g/dl (32.0-35.9); MEAN CELL VOLUME 88.1 fl (80-96); MEAN PLT VOLUME 8.3 fl (7.5-11.1); PLATELET COUNT 260 10^3/uL (134-434); RBC 4.16 M/mm3 (4.00-5.60); RDW 13.6 % (11.9-15.9); WHITE BLOOD COUNT 9.5 K/mm3 (4.0-10.8)
[2021-08-28 08:20] LABS: ALBUMIN 3.6 g/dl (3.4-5.0); BILIRUBIN,TOTAL 1.1 mg/dl (0.2-1); CREATININE 1.5 mg/dl (0.55-1.3); TOT PROT 6.6 g/dl (6.4-8.2)
[2021-08-28] MEDS: ASPIRIN 325 MG TABLET PO SCH (08:31)
[2021-08-28] MEDS: NIFEdipine E.R 60 MG TABLET PO SCH (09:24)
[2021-08-28] MEDS: MULTIVITAMINS (DAILY MVI) TABLET (FP) PO SCH (09:24)
[2021-08-28] MEDS: LOSARTAN POTASSIUM 50 MG TABLET PO SCH (09:24)
[2021-08-28] MEDS: SENNOSIDES/DOCUSATE COMBO (SENNA PLUS) TABLET (UD) PO SCH ×2 (09:24→21:30)
[2021-08-28] MEDS: oxyCODONE HCL 10 MG SUSTAINED ACTING TABLET PO SCH ×2 (09:25→21:30)
[2021-08-28] MEDS: PANTOPRAZOLE 40 MG TABLET PO SCH (09:25)
[2021-08-28] MEDS ORDERED: PATIENT'S OWN MEDICATION (NON-FORMULARY) (Candesartan Cilexetil 8 MG Tablet) PO SCH (10:00)
[2021-08-29] MEDS: oxyCODONE HCL 5 MG TABLET PO PRN (04:46)
[2021-08-29] MEDS: ACETAMINOPHEN 500 MG TABLET (FP) PO SCH ×3 (04:46→15:26)
[2021-08-29] MEDS ORDERED: POTASSIUM CHLORIDE 10 MEQ in SODIUM CHLORIDE 0.45% 1,000 ML IVPB SCH (08:15)
[2021-08-29 08:20] LABS: CALCIUM 8.4 mg/dl (8.5-10); CREATININE 1.4 mg/dl (0.55-1.3)
[2021-08-29 08:30] LABS: HEMATOCRIT 34.9 % (35.4-49); HEMOGLOBIN 11.7 GM/dl (11.7-16.9); MCH 29.8 pg (25.7-33.7); MCHC 33.5 g/dl (32.0-35.9); MEAN CELL VOLUME 88.8 fl (80-96); MEAN PLT VOLUME 8.6 fl (7.5-11.1); PLATELET COUNT 94 10^3/uL (134-434); RBC 3.93 M/mm3 (4.00-5.60); RDW 13.6 % (11.9-15.9); WHITE BLOOD COUNT 10.1 K/mm3 (4.0-10.8)
[2021-08-29] MEDS: ASPIRIN 325 MG TABLET PO SCH (08:45)
[2021-08-29] MEDS: NIFEdipine E.R 60 MG TABLET PO SCH (09:29)
[2021-08-29] MEDS: MULTIVITAMINS (DAILY MVI) TABLET (FP) PO SCH (09:30)
[2021-08-29] MEDS: LOSARTAN POTASSIUM 50 MG TABLET PO SCH (09:30)
[2021-08-29] MEDS: SENNOSIDES/DOCUSATE COMBO (SENNA PLUS) TABLET (UD) PO SCH (09:30)
[2021-08-29] MEDS: PANTOPRAZOLE 40 MG TABLET PO SCH (09:30)
[2021-08-29] MEDS: oxyCODONE HCL 10 MG SUSTAINED ACTING TABLET PO SCH (11:09)
[2021-08-29 15:12] VITALS: BP 137/54; PULSE 104; TEMP 99.3
== END 2021-08-29 16:31 | disposition home health service (06) | DRG 302 ==
LOC: FM/S 09:16
PROVIDERS: ADMIT Orthopaedic Surgery; ATTEND Orthopaedic Surgery
PROC: 8E0Y0CZ Robotic Assisted Procedure of Lower Extremity, Open Approach (ICD-10-PCS; 2021-08-27)
PROC: 0SRC0JA Replacement of Right Knee Joint with Synthetic Substitute, Uncemented, Open Approach (ICD-10-PCS; principal; 2021-08-27 12:24)
DX: M17.11 Unilateral primary osteoarthritis, right knee (principal); J45.909 Unspecified asthma, uncomplicated; R00.0 Tachycardia, unspecified
CPT/HCPCS: 36415; 73560-TC-RT-FY; 80048; 80053; 84443; 85027; 93005; 94010; 94760; 97010-GP; 97116-GP; 97162-GP; J0131